=== PATIENT | female | born 1950 | race Caucasian/White ===

== ENCOUNTER 2018-07-15 07:40 | Outpatient (CLI) | payer MEDICARE, BC | END 2018-07-15 07:41 | disposition home or self-care (01) | DRG 310 | LOC: CONVCARE 07:40 | PROVIDERS: ATTEND Internal Medicine Cardiovascular Disease | DX: I48.1 Persistent atrial fibrillation (principal); Z79.1 Long term (current) use of non-steroidal anti-inflammatories (NSAID) | CPT/HCPCS: 93005 ==